=== PATIENT | female | born 1985 | race American Indian/Alaskan Native ===

== ENCOUNTER 2017-04-12 18:46 | Outpatient (CLI) | payer BC, MEDICAID ==
[2017-04-12 20:42] VITALS: BP 118/58
== END 2017-04-12 20:45 | disposition home or self-care (01) ==
LOC: TRG 18:46 → LD 18:49 → TRG 19:43
PROVIDERS: ATTEND Obstetrics & Gynecology
DX: O47.03 False labor before 37 completed weeks of gestation, third trimester (principal); Z3A.30 30 weeks gestation of pregnancy

== ENCOUNTER 2017-04-13 12:12 | Outpatient (CLI) | payer BC, MEDICAID ==
--- NOTE | 2017-04-15 10:10 | Vascular Lab Report ---
LOWER EXTREMITY VENOUS DUPLEX: REASON FOR EXAM: Edema of the lower extremities. COMMENTS ON THE RIGHT: All veins visualized are freely compressible without evidence of internal echogenicity. Flow is spontaneous and phasic throughout. COMMENTS ON THE LEFT: All veins visualized are freely compressible without evidence of internal echogenicity. Flow is spontaneous and phasic throughout. IMPRESSION: No evidence of acute or chronic deep venous thrombosis in either lower extremity.
== END 2017-04-13 12:13 | disposition home or self-care (01) ==
LOC: VAS 12:12
PROVIDERS: ATTEND Obstetrics & Gynecology
DX: R60.0 Localized edema (principal); J45.909 Unspecified asthma, uncomplicated
CPT/HCPCS: 93970

== ENCOUNTER 2020-07-07 08:28 | Inpatient (IN) | payer BC, OTHER ==
[2020-07-07] MEDS ORDERED: BUTORPHANOL 2 MG/1 ML INJ IV PRN (09:10)
--- NOTE | 2020-07-07 09:17 | History and Physical Report ---
History of Present Illness Date of examination: 07/07/20 (No c/o voiced; ask for US prior to starting process) Date of admission: 07/07/20 Chief complaint: induction for demise History of present illness: EDC Calculations LMP: 11/06/2020 Gestational Age: weeks Risk Factors: Smoked Tobacco Use: Never smoker Smokeless Tobacco Use: Never Passive smoke exposure: no Drug use: no HIV high-risk behavior: no Caffeine use: 0 drinks per day Alcohol use: no Exercise: no Seatbelt use: 100 % Sun Exposure: rarely Family History Risk Factors: Family History of UT in females < 65 years old: no PAP Smear History: Date of Last PAP Smear: 10/14/2019 Results: Normal Past Medical History: Reviewed history from 12/29/2008 and no changes required: asthma and panick attacks no hx of dvt while taking ocp Past Surgical History: Reviewed history from 09/15/2008 and no changes required: negative Past Medical History Anesthesia Complications: negative Anemia: negative Autoimmune Disorder: negative Bleeding Disorder: negative Blood Transfusions: negative Breast Disease: negative Diabetes: negative Heart Disease: negative Hypertension: negative Hepatitis/Liver Disease: negative Kidney Disease/UTI: negative Neurologic/Epilepsy/Migraines: negative Phlebitis/Varicosities: negative Psychiatric: positive, Anxiety Pulmonary Disease/Asthma: negative Thyroid Disease: negative Hospitalizations: negative Surgery (Non-cost control specialist): negative Abnormal PAP: positive, "years ago" all have been normal. 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 of genital herpes: no Partner hx. of genital herpes: no Rash, Viral, or Febrile illness since last LMP? no TB Risk: no Genetic History ADVANCED MATERNAL AGE Congenital Heart Defect: Mom: no Dad: no Roderick Disease: Mom: no Dad: no Thalassemia Mom: no Dad: no Neural Tube Defect Mom: no Dad: no Down's Syndrome Mom: no Dad: no Hernando-Sachs Mom: no Dad: no Sickle Cell Disease/Trait Mom: no Dad: no Hemophilia Mom: no Dad: no Muscular Dystrophy Mom: no Dad: no Cystic Fibrosis Mom: no Dad: no Sully Chorea Mom: no Dad: no Mental Retardation Mom: no Dad: no Fragile X Mom: no Dad: no Other Genetic/Chromosomal Disorder Mom: no Dad: no Child w/other defect Mom: no Dad: no Enviromental Exposures Enviromental Exposures Reviewed Xray Exposure: no Medication, drug, or alcohol use since LMP: no Chemical/Other Exposure: no Exposure to Cat Liter: no Hx of Parvovirus (Fifth Disease): no Occupational Exposure to Children: none FALSECurrent Allergies: No known allergies Past History - Obstetrical History Expected Date of Delivery: 12/15/20 Actual Gestation: 17 Week(s) 0 Day(s) : 6 Para: 2 Hx # Term Pregnancies: 2 Number of Pregnancies: 0 Spontaneous Abortions: 1 Induced : 2 Medications and Allergies Allergies Allergy/AdvReac Type Severity Reaction Status Date / Time No Known Allergies Allergy Unverified 01/10/14 15:52 Home Medications Medication Instructions Recorded Confirmed Last Taken Type Naproxen [Naprosyn] 375 mg PO BID PRN #20 tablet 01/10/14 06/02/17 Unknown Rx methylPREDNISolone [Medrol Dose 4 mg PO DAILY #1 packet 01/10/14 06/02/17 Unknown Rx Martell] Vit-Fe Fumar-FA [ 1 tab PO QDAY 06/02/17 06/02/17 05/31/17 History Vitamin] Review of Systems All systems: negative - Physical Exam Breasts: Positive: normal Cardiovascular: Regular rate, Normal S1, Normal S2 Lungs: Positive: Normal air movement Abdomen: Positive: normal appearance, soft, normal bowel sounds. Negative: distention, tenderness Genitourinary (Female): Positive: normal perenium Vulva: both: normal Vagina: Positive: normal moisture. Negative: discharge Cervix: Negative: lesion, discharge Uterus: Positive: normal size, normal contour Adnexa: both: normal Anus/Rectum: Positive: normal perianal skin, heme negative. Negative: rectal mass, hemorrhoids Extremities: Deep Tendon Reflex Grade: Normal +2 - Obstetrical Uterine Contraction Monitor Mode: External Cervical Dilatation: 0 Cervical Effacement Percentage: 0 station: -5 Uterine Contraction Pattern: Absent Results Result Diagrams: 07/07/20 09:43 All other labs normal. Assessment and Plan - Patient Problems (1) demise Onset Date: ~07/07/20 Current Visit: Yes Status: Acute Plan to address problem: Pt req US prior to starting IOL Confirmed demise by US. Discussed POC with pt.1. made pt aware that she can request operative D&E if she feels process takes too long But we will need to transfer her to an OB that does that procedure 2. Pt also made aware that this process can take days or it may be very quick 3. There may also be a need for D&C if placenta is retained All questions addressed. Pt agrees with POC. Will place Cytotec.
[2020-07-07] MEDS ORDERED: miSOPROStol 25 MCG TAB VG SCH (09:30)
[2020-07-07] MEDS ORDERED: OXYTOCIN 10 UNIT/1 ML INJ IM PRN (09:30)
[2020-07-07] MEDS ORDERED: TERBUTALINE 1 MG/1 ML INJ SUB-Q PRN (09:30)
[2020-07-07] MEDS ORDERED: CARBOPROST TROMETHAMINE 250 MCG/1 ML INJ IM PRN (09:30)
[2020-07-07] MEDS ORDERED: ePHEDrine SULFATE 50 MG/1 ML INJ IV PRN (09:30)
[2020-07-07] MEDS ORDERED: MINERAL OIL 30 ML ORAL LIQD PO PRN (09:30)
[2020-07-07] MEDS ORDERED: METHYLERGONOVINE MALEATE 0.2 MG/ML VIAL IM PRN (09:30)
[2020-07-07] MEDS ORDERED: miSOPROStol 200 MCG TAB PR PRN (09:30)
[2020-07-07] MEDS ORDERED: LIDOCAINE (2%) 20 MG/1 ML VIAL 20 ML MDV INFILTRATI SCH (09:30)
[2020-07-07] MEDS ORDERED: LOPERAMIDE 2 MG CAP PO PRN (09:30)
[2020-07-07] MEDS ORDERED: PROMETHAZINE 25 MG TAB PO PRN (09:30)
[2020-07-07] MEDS ORDERED: ONDANSETRON 4 MG/2 ML INJ IV PRN (09:30)
[2020-07-07] MEDS ORDERED: OXYTOCIN DRIP 30 UNITS/500 ML BAG IV SCH (10:00)
[2020-07-07] MEDS ORDERED: ACETAMINOPHEN 325 MG TAB PO PRN (10:00)
[2020-07-07 10:09] LABS: Hematocrit 34.1 % (30.3-42.9); Hemoglobin 11.1 gm/dl (10.1-14.3); Mean Corpuscular HGB Conc 33 % (30-34); Mean Corpuscular Volume 77 fl (79-97); Platelet Count 262 K/mm3 (140-440); Red Blood Count 4.44 M/mm3 (3.65-5.03); Red Cell Distribution Width 14.5 % (13.2-15.2)
--- NOTE | 2020-07-07 10:15 | Ultrasound Report ---
US OB limited INDICATION / CLINICAL INFORMATION: demise pt desires confirmation. TECHNIQUE: Transabdominal. COMPARISON: None available. FINDINGS/IMPRESSION: No heart tones. Hydrops of the abdomen is observed. Signer Name: Savage Paz MD Signed: 07/07/2020 10:10 AM Workstation Name: [id number]
[2020-07-07] MEDS ORDERED: miSOPROStol 200 MCG TAB VG ONE (12:58)
--- NOTE | 2020-07-07 12:59 | Event Note ---
Date: 07/07/20 (cytotec placed) Pt anxious All questions addressed. Pt is aware this may take days or it may be tonight.
[2020-07-07] MEDS: BUTORPHANOL 2 MG/1 ML INJ IV PRN ×2 (17:27→19:21)
[2020-07-07] MEDS: LACTATED RINGERS 1,000 ML IV SCH (17:27)
--- NOTE | 2020-07-07 18:12 | Event Note ---
Date: 07/07/20 (happy with pain medication) SVE 1,long high Will place cervidil Pt agrees to POC
[2020-07-07] MEDS ORDERED: DINOPROSTONE 10 MG VAG SUPP VG ONE (18:25)
[2020-07-07] MEDS ORDERED: AMMONIA INHALANT IH ONE (21:01)
--- NOTE | 2020-07-07 21:18 | Procedure Note ---
OB Delivery Note - Delivery Date of Delivery: 07/07/20 Building Attendant: SERGIO PAREDES Estimated blood loss: 500cc - Vaginal Delivery presentation: breech Intrapartum events: other(please specify) (demise) Delivery induction: misoprostol (cytotec 200) Delivery monitor: external uterine Delivery comments: Pt called out with urge to bear down and to report bleeding. SVE parts in vagina. Baby delivered complete Cord clamped. Baby wrapped in blanketLarge bleeding noted FF well down below umbilicus Pt stable Pt request to go to toilet. Assisted OOB to void Bed chged Pt fainted in restroom. Responded to ammonia wisp Assisted to bed. Several large clots passed in floor. Pitocin infusing. VSS Pt c/o some increased pressure Encouraged to rest and allow body to work. Pt resting Pitocin infusing Several small clots passed. Cytotec 800mcg SD placed. Dr Retana called Pt consented and taken to OR for D&C - Infant A at 1 minute: 0 at 5 minutes: 0 Gender: Male (110 grams)
[2020-07-07] MEDS ORDERED: fentaNYL 100 MCG/2 ML INJ ONE (21:53)
[2020-07-07] MEDS ORDERED: fentaNYL 100 MCG/2 ML INJ IV ONE (21:59)
[2020-07-08 00:02] LABS: Hematocrit 29.8 % (30.3-42.9); Hemoglobin 9.6 gm/dl (10.1-14.3); Mean Corpuscular HGB Conc 32 % (30-34); Mean Corpuscular Volume 77 fl (79-97); Platelet Count 287 K/mm3 (140-440); Red Blood Count 3.88 M/mm3 (3.65-5.03); Red Cell Distribution Width 14.6 % (13.2-15.2)
[2020-07-08] MEDS: LACTATED RINGERS 1,000 ML IV SCH (00:07)
[2020-07-08] MEDS ORDERED: MEPERIDINE 25 MG/1 ML INJ IV PRN (00:28)
[2020-07-08] MEDS ORDERED: fentaNYL 100 MCG/2 ML INJ IV PRN (00:28)
[2020-07-08] MEDS ORDERED: NALOXONE 0.4 MG/1 ML INJ IV PRN (00:28)
[2020-07-08] MEDS ORDERED: ONDANSETRON 4 MG/2 ML INJ IV PRN (00:28)
--- NOTE | 2020-07-08 00:29 | Anesthesia Day of Surgery ---
Anesthesia Day of Surgery - Day of Surgery Patient Examined: Yes Patient H&P Reviewed: Yes Patient is NPO: Yes Beta Blockers: No Cardiac Clearance: No Pulmonary Clearance: No Deion's Test: N/A
--- NOTE | 2020-07-08 00:30 | Anesthesia Consultation ---
Anesthesia Consult and Med Hx Date of service: 07/08/20 - Airway Anesthetic Teeth Evaluation: Good ROM Head & Neck: Adequate Mental/Hyoid Distance: Adequate Mallampati Class: Class II Intubation Access Assessment: Probably Good - Pulmonary Exam CTA: Yes - Cardiac Exam Cardiac Exam: RRR - Pre-Operative Health Status ASA Pre-Surgery Classification: ASA2 Proposed Anesthetic Plan: General - Pulmonary Hx Smoking: No Hx Asthma: Yes COPD: No Hx Pneumonia: No Hx Sleep Apnea: No - Cardiovascular System Hx Hypertension: No Hx Heart Attack/AMI: No Hx Angina: No - Central Nervous System Hx Seizures: No Hx Psychiatric Problems: No - Gastrointestinal Hx Gastroesophageal Reflux Disease: No - Endocrine Hx Renal Disease: No Hx End Stage Renal Disease: No Hx Insulin Dependent Diabetes: No Hx Non-Insulin Dependent Diabetes: No Hx Hypothyroidism: No Hx Hyperthyroidism: No - Hematic Hx Anemia: No Hx Sickle Cell Disease: No - Other Systems Hx Alcohol Use: Yes
[2020-07-08] MEDS ORDERED: SUCCINYLCHOLINE CHLORIDE 200 MG/10 ML INJ MDV ONE (00:37)
[2020-07-08] MEDS ORDERED: ONDANSETRON 4 MG/2 ML INJ ONE (00:37)
[2020-07-08] MEDS ORDERED: KETOROLAC 30 MG/1 ML INJ ONE (00:37)
[2020-07-08] MEDS ORDERED: propofoL 200 MG/20 ML VIAL IV ONE (00:37)
[2020-07-08] MEDS ORDERED: LIDOCAINE MPF (2%) 20 MG/1 ML VIAL 5 ML ONE (00:37)
[2020-07-08] MEDS ORDERED: dexAMETHasone 20 MG/5 ML VIAL ONE (00:37)
[2020-07-08] MEDS ORDERED: MIDAZOLAM 2 MG/2 ML INJ ONE (00:38)
--- NOTE | 2020-07-08 01:01 | Event Note ---
Date: 07/08/20 Pt with retained placenta after delivery. On exam placenta delivered partially but full exam could not be done due to pt discomfort. Will proceed with D&C for removal of retained poc. Pt advised of need for surgery. All risk, benefits, and alternatives were d/w pt. Questions were addressed and answered. Consent signed and placed on the chart Anesthesia aware of decision to do the procedure.
[2020-07-08] MEDS ORDERED: diphenhydrAMINE 25 MG CAP PO PRN (02:19)
[2020-07-08] MEDS ORDERED: WITCH HAZEL/ GLYCERIN PAD TP PRN (02:19)
[2020-07-08] MEDS ORDERED: LANOLIN/ZINC/DIMETHICONE (LANSINOH) 7 GM TP PRN (02:19)
[2020-07-08] MEDS ORDERED: MAGNESIUM HYDROXIDE (MOM) ORAL LIQD UDC PO PRN (02:19)
--- NOTE | 2020-07-08 02:19 | Operative Report ---
Operative Report Operative Report: Date of procedure: 07/08/2020 Pre-operative diagnosis: Retained placenta after vaginal delivery of IUFD Post-operative diagnosis: Same Procedure name(s): Exam under anesthesia Suction dilatation and curettage Surgeon: Dr. Retana Building Equipment Inspector: Certified surgical scrub physical laboratory assistant Anesthesia: General endotracheal anesthesia EBL: 50 cc Urine output: Approximately 25 cc of clear urine out prior to the onset of the procedure via straight catheterization Fluids: [] Findings: Placental tissue removed from the cervical os as well as from the uterine cavity with minimal bleeding noted at the end of the procedure Gritty texture of the uterine cavity at the end of the procedure Indications: Patient underwent induction of labor for intrauterine demise at approximately 20 weeks. Upon delivery of the fetus the placenta partially delivered with bleeding noted at that time. Decision was made at that time to proceed to the operating room for suction dilatation and curettage. All risk benefits and alternatives were discussed with the patient. Consents were signed and placed on the chart. Procedure: Patient was taken to the operating room where she was placed under [mask anesthesia]. She was then prepped and draped in sterile fashion. She was placed in dorsal lithotomy position with legs in Deion stirrups. Urine output was obtained via straight catheterization. The anterior lip of the cervix was grasped with a tenaculum and the uterus was sounded to approximately [20 ]cm. Cervix was noted to be approximately 4 cm dilated. A 10 mm suction curette was used for the procedure. Suction dilatation and curettage occurred until a gritty texture was obtained on all surfaces of the uterus. Gentle sharp scraping of the uterus was also done again with gritty texture noted. Patient also underwent manual exam of the uterus in which no portions of placenta was palpated inside the uterine cavity. At the end of the procedure the uterus was approximately 14 weeks size. Products of conception were removed from the uterus. Hemostasis was noted to be excellent. Patient was taken to the recovery room awake and in stable condition. All laps and needle counts were correct. Patient tolerated the procedure well.
[2020-07-08] MEDS: IBUPROFEN 800 MG TAB PO SCH ×2 (04:00→14:43)
[2020-07-08] MEDS ORDERED: ceFAZolin/NS 1 GM/50 ML 0 GM/0 ML BAG IV ONE (06:32)
[2020-07-08] MEDS ORDERED: LACTATED RINGERS 1,000 ML IV SCH (07:15)
[2020-07-08 08:10] LABS: Hematocrit 24.8 % (30.3-42.9)
--- NOTE | 2020-07-08 08:49 | Progress Note ---
Assessment and Plan patient sitting up in bed eating regular diet. She states she is very tired and feels "traumatized" after the events of the delivery. pt's mother recently left but will come back. Advised patient that we will continue to monitor and consider d/c home tomorrow. [place], H&H 8.0/24.8. - Patient Problems (1) demise, less than 22 weeks, delivered, current hospitalization Current Visit: Yes Status: Acute (2) Vaginal delivery Current Visit: No Status: Acute (3) Anemia associated with acute blood loss Current Visit: Yes Status: Acute Plan to address problem: recheck H&H 12 hours after D&C start FE BID Subjective - Subjective Date of service: 07/08/20 Principal diagnosis: day #1 s/p IUFD and D&C for placenta Patient reports: appetite normal, voiding normally, pain well controlled, ambulating normally, no nauseated Objective - Vital Signs Latest vital signs: Vital Signs Temp Pulse Resp BP BP Pulse Ox 07/08/20 03:06 98 H 12 104/59 100 07/08/20 03:05 98.1 F 85 20 98/65 99 07/08/20 02:35 104 H 21 96/61 100 07/08/20 02:20 99 H 18 94/56 100 07/08/20 02:05 99 H 12 90/53 100 07/08/20 01:56 101 H 17 86/42 98 07/08/20 01:55 106 H 15 96/41 98 07/08/20 01:49 101 H 17 86/42 96 07/08/20 01:44 99 H 15 103/50 103/50 96 07/08/20 00:20 111 H 100 07/08/20 00:18 113 H 107/67 07/08/20 00:15 106 H 100 07/08/20 00:10 106 H 99 07/08/20 00:05 111 H 99 07/08/20 00:03 108 H 101/64 07/08/20 00:00 112 H 99 07/07/20 23:55 119 H 96 07/07/20 23:50 109 H 100 07/07/20 23:48 107 H 100/62 07/07/20 23:45 101 H 99 07/07/20 23:40 113 H 99 07/07/20 23:35 121 H 100 07/07/20 23:26 114 H 98 07/07/20 23:21 110 H 99 07/07/20 23:18 105 H 88/64 07/07/20 23:16 100 H 98 07/07/20 23:11 112 H 98 07/07/20 23:06 108 H 98 07/07/20 23:03 142 H 103/61 07/07/20 23:02 18 07/07/20 23:01 126 H 98 07/07/20 22:56 119 H 96 07/07/20 22:51 121 H 98 07/07/20 22:48 109 H 110/61 07/07/20 22:46 112 H 97 07/07/20 22:41 112 H 100 07/07/20 22:36 116 H 99 07/07/20 22:33 122 H 128/72 07/07/20 22:31 108 H 99 07/07/20 22:26 102 H 98 07/07/20 22:21 104 H 98 07/07/20 22:18 100 H 117/78 07/07/20 22:16 112 H 98 07/07/20 22:11 101 H 97 07/07/20 22:10 102 H 94 07/07/20 22:06 99 H 91 07/07/20 22:04 109 H 91 07/07/20 22:03 92 H 110/67 07/07/20 22:02 18 07/07/20 22:01 103 H 97 07/07/20 21:56 122 H 98 07/07/20 21:51 137 H 100 07/07/20 21:48 93 H 107/61 07/07/20 21:46 92 H 99 07/07/20 21:41 101 H 99 07/07/20 21:36 93 H 98 07/07/20 21:33 93 H 118/68 07/07/20 21:31 96 H 99 07/07/20 21:26 107 H 100 07/07/20 21:21 101 H 100 07/07/20 21:18 99 H 109/65 07/07/20 21:16 102 H 100 07/07/20 21:11 97 H 100 07/07/20 21:06 108 H 97 07/07/20 21:04 91 H 102/60 07/07/20 21:01 99 H 0 L 07/07/20 20:21 18 07/07/20 19:35 94 H 144/78 07/07/20 19:32 98.0 F 94 H 18 144/78 07/07/20 18:27 19 07/07/20 09:57 93 H 133/78 07/07/20 09:56 98.0 F 93 H 16 133/78 Intake and Output 07/07/20 07/08/20 07/08/20 23:59 07:59 15:59 Intake Total 1033.333 Output Total 600 Balance 433.333 Intake: IV 1033.333 Lactated Ringers 1,000 ml 833.333 @ 125 mls/hr IV DIRECT ANTON Rx#:[id number] Output: Urine 600 Void 600 Other: Total, Output Amount 600 Estimated Blood Loss 1,000 - Exam Breasts: Present: normal Cardiovascular: Present: Regular rate Lungs: Present: Clear to auscultation, Normal air movement Abdomen: Present: normal appearance, soft Vulva: both: normal Uterus: Present: normal, firm, fundal height below umbilicus Extremities: Present: normal Deep Tendon Reflex Grade: Normal +2 - Labs Labs: Abnormal lab results 07/07/20 07/07/20 07/08/20 Range/Units 09:43 23:40 07:50 WBC 13.9 H (4.5-11.0) K/mm3 Hgb 9.6 L 8.0 L (10.1-14.3) gm/dl Hct 29.8 L 24.8 L (30.3-42.9) % MCV 77 L 77 L (79-97) fl MCH 25 L 25 L (28-32) pg
--- NOTE | 2020-07-08 10:18 | Post Anesthesia Evaluation ---
- Post Anesthesia Evaluation Patient Participated: Yes Airway Patent: Yes Stable Respiratory Function: Yes Nausea/Vomiting: No Temp > 96.8F: Yes Pain Manageable: Yes Adequeate Hydration: Yes Anesthesia Complications: No Block Receding Appropriately: Yes Patient on Ventilator: No
[2020-07-08] MEDS: FERROUS SULFATE 325 MG TAB PO SCH (14:47)
[2020-07-08 15:34] LABS: Hemoglobin 7.4 gm/dl (10.1-14.3)
[2020-07-08] MEDS ORDERED: SODIUM CHLORIDE 0.9% 500 ML 500 ML IV NR (18:33)
[2020-07-08] MEDS ORDERED: ACETAMINOPHEN 500 MG TAB PO PRN (18:36)
--- NOTE | 2020-07-08 18:39 | Event Note ---
Date: 07/08/20 Received call for RN stating patient is complaining of fatigue. h/h 7.4/23.0, denies bleeding or pain. Will proceed with transfusion of one unit PRBC for now and recheck H/H in am
[2020-07-08] MEDS ORDERED: BENZOCAINE/MENTHOL LOZENGE MM PRN (22:08)
--- NOTE | 2020-07-09 08:34 | Discharge Summary ---
Providers - Providers Date of Admission: 07/08/20 02:19 Date of discharge: 07/09/20 (pt desires d/c home) Attending physician: FANNY ESCOBAR Primary care physician: FANNY ESCOBAR Hospitalization Reason for admission: Induction of labor for demise Condition: Good Pertinent studies: post delivery H&H 7.3/23.0, pt was symptomatic. received 1unit blood - waiting on post transfusion H&H, pt no longer symptomatic Procedures: vaginal nonviable infant, D&C for placenta Hospital course: uncomplicated vaginal for IUFD Disposition: DC-01 TO HOME OR SELFCARE - Discharge Diagnoses (1) demise, less than 22 weeks, delivered, current hospitalization Status: Acute (2) Vaginal delivery Status: Acute (3) Anemia associated with acute blood loss Status: Acute Core Measure Documentation - Palliative Care Palliative Care/ Comfort Measures: Not Applicable - Core Measures Any of the following diagnoses?: none Exam - Constitutional Vitals: Temp Pulse Resp BP Pulse Ox 98.6 F 85 22 132/82 97 07/09/20 07:16 07/09/20 07:16 07/09/20 07:16 07/09/20 07:16 07/09/20 07:16 General appearance: Present: no acute distress, well-nourished - EENT Eyes: Present: PERRL ENT: hearing intact, clear oral mucosa - Neck Neck: Present: supple, normal ROM - Respiratory Respiratory effort: normal Respiratory: bilateral: CTA - Cardiovascular Rhythm: regular Heart Sounds: Absent: rub, click - Extremities Extremities: No edema Peripheral Pulses: within normal limits - Abdominal General gastrointestinal: Present: soft, non-tender, non-distended, normal bowel sounds Female genitourinary: Present: normal - Integumentary Integumentary: Present: clear, warm, dry - Musculoskeletal Musculoskeletal: gait normal, strength equal bilaterally - Psychiatric Psychiatric: appropriate mood/affect, intact judgment & insight - Neurologic Neurologic: CNII-XII intact, moves all extremities - Additional findings Additional findings: lochia scant, appropriate grieving Plan Activity: no restrictions Diet: regular Follow up with: FANNY ESCOBAR MD [Primary Care Provider] - 14 Days (We are so sorry for your loss. Please call [phone] to schedule your 2 week follow up. Please call for any complaints or concerns. )
[2020-07-09] MEDS: FERROUS SULFATE 325 MG TAB PO SCH (10:24)
[2020-07-09] MEDS: IBUPROFEN 800 MG TAB PO SCH (10:25)
[2020-07-09 12:03] LABS: Hemoglobin 8.6 gm/dl (10.1-14.3)
[2020-07-09 13:05] VITALS: BP 127/75
== END 2020-07-09 15:00 | disposition home or self-care (01) | DRG 767 ==
LOC: TRG 08:28 → LD 08:29 → UNDOADMIN 08:29 → LD 08:29 → TRG 09:10 → LD 07-08 02:19 → OB 07-08 04:04
PROVIDERS: ADMIT Obstetrics & Gynecology; ATTEND Obstetrics & Gynecology
PROC: 10E0XZZ Delivery of Products of Conception, External Approach (ICD-10-PCS; principal; 2020-07-07)
PROC: 3E0P7VZ Introduction of Hormone into Female Reproductive, Via Natural or Artificial Opening (ICD-10-PCS; 2020-07-07)
PROC: 10J17ZZ Inspection of Products of Conception, Retained, Via Natural or Artificial Opening (ICD-10-PCS; 2020-07-07)
PROC: 10D17ZZ Extraction of Products of Conception, Retained, Via Natural or Artificial Opening (ICD-10-PCS; 2020-07-08)
PROC: 30233N1 Transfusion of Nonautologous Red Blood Cells into Peripheral Vein, Percutaneous Approach (ICD-10-PCS; 2020-07-08)
DX: O36.4XX0 Maternal care for intrauterine death, not applicable or unspecified (principal); Z37.1 Single stillbirth; Z3A.17 17 weeks gestation of pregnancy; O90.81 Anemia of the puerperium; D62 Acute posthemorrhagic anemia
CPT/HCPCS: 36415; 59200; 76815; 85014; 85018; 85027; 86592; 86850; 86900; 86901; 86920; 88305; G0378; J0330; J0595; J0690; J1100; J1885; J2250; J2405; J2590; J2704; J3010; J7120; P9016